=== PATIENT | female | born 1970 | race Caucasian/White ===

== ENCOUNTER 2021-06-14 18:11 | Emergency (ER) | payer OTHER ==
[~2021-06-14] VITALS: Ht 165.1 cm; Wt 81.6 kg
[2021-06-14 18:37] VITALS: BP 129/79
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
[2021-06-14] MEDS ORDERED: CYCL5TAB PO (18:52)
[2021-06-14] MEDS ORDERED: IBUP-1955 PO (18:52)
--- NOTE | 2021-06-14 18:54 | NUR ---
Patient discharged to home in stable condition. Written and verbal after care instructions given. Patient verbalizes understanding of instruction.
== END 2021-06-14 18:55 | disposition home or self-care (01) ==
LOC: ER 18:54
DX: M54.6 Pain in thoracic spine (principal); M54.2 Cervicalgia; V49.69XA Unspecified car occupant injured in collision with other motor vehicles in traffic accident, initial encounter; Y93.89 Activity, other specified; Y92.413 State road as the place of occurrence of the external cause; Y99.8 Other external cause status